=== PATIENT | female | born 1945 ===

== ENCOUNTER 2018-03-29 07:42 | Day surgery (SDC) | payer OTHER ==
[2018-03-26 20:46] VITALS: BMI 25.9
[2018-03-29] MEDS ORDERED: Iodixanol 320 MG/ML 100 ML BOTTLE IV ONE (11:52)
[2018-03-29] MEDS ORDERED: Midazolam 2 MG/2 ML VIAL ONE (11:52)
[2018-03-29] MEDS ORDERED: Iodixanol 320 MG/ML 200 ML BOTTLE IV ONE (11:52)
[2018-03-29] MEDS ORDERED: DiphenhydrAMINE 50 mg/ml Inj ONE (11:52)
--- NOTE | 2018-03-30 09:22 | CARDCATH ---
PROCEDURE DATE: 03/29/2018 INDICATIONS: The patient is a 72-year-old female who has history of hypertension and diabetes mellitus, presented to [facility] because of chest pain. [id number] myocardial infarction was ruled in. Cardiac catheterization was recommended. The procedure and its risks were fully explained to the patient who understood and agreed for the procedure. PROCEDURE: After local infiltration with 1% lidocaine, a 6-Lithuanian sheath was placed in the RFA. Left and right coronary angiography was performed with 6-Lithuanian JL4 and JR 3D diagnostic catheters. The patient tolerated the procedure well without any complications. ANGIOGRAPHIC FINDINGS: Selective injection of the left coronary artery revealed the left main to be a short normal vessel that immediately bifurcated into medium-sized LAD and medium-sized normal circumflex artery. The circumflex artery had 70% concentric stenosis in its mid segment. The rest of the left coronary artery circulation was angiographically unremarkable. Selective injection of the right coronary artery revealed a medium-sized dominant vessel that was angiographically unremarkable. CONCLUSION: 1. Insignificant ostial left main narrowing. 2. 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 RECOMMENDATIONS: PCI to mid circumflex artery will be discussed with the patient and the patient agrees. The patient will be transferred to [facility] for the procedure. Attila Boyd MD
== END 2018-03-29 17:00 | disposition short-term general hospital (02) ==
LOC: C.CATHLAB 07:42
PROVIDERS: ATTEND Specialist
DX: I25.10 Atherosclerotic heart disease of native coronary artery without angina pectoris (principal); I10 Essential (primary) hypertension; I21.9 Acute myocardial infarction, unspecified; E11.9 Type 2 diabetes mellitus without complications
CPT/HCPCS: 82948; 93452; C1769; C1887; C1893; J0360; J1644; J2250; Q9966; Q9967

== ENCOUNTER 2018-04-14 13:34 | Inpatient (IN) | payer MEDICARE, OTHER ==
[2018-04-14 13:39] VITALS: BMI 24.5
[2018-04-14 15:15] LABS: BASO % 0.9 % (0.0-2.0); EOS # 0.3 K/uL (0.0-0.7); EOS % 6.1 % (0.0-4.0); HEMOGLOBIN 9.6 g/dL (11.0-16.0); LYMPH # 1.2 K/uL (1.0-4.3); LYMPH % 26.4 % (20.0-40.0); MEAN CELL VOLUME 85.9 fL (81.0-99.0); MEAN CORPUSCULAR HEMOGLOBIN 28.3 pg (27.0-31.0); MEAN PLATELET VOLUME 7.4 fL (7.2-11.7); MONO # 0.4 K/uL (0.0-0.8); MONO % 7.8 % (0.0-10.0); NEUT # 2.8 K/uL (1.8-7.0); NEUT % 58.8 % (50.0-75.0); RBC 3.39 Mil/uL (3.80-5.20); RED CELL DISTRIBUTION WIDTH 14.6 % (11.5-14.5); WHITE BLOOD COUNT 4.7 K/uL (4.8-10.8)
[2018-04-14 15:23] LABS: PROTHROMBIN TIME 11.4 SECONDS (9.7-12.2)
[2018-04-14 15:32] LABS: ALB/GLOB RATIO 1.4 (1.0-2.1); ALBUMIN 4.4 g/dL (3.5-5.0); CALCIUM 9.9 mg/dl (8.6-10.4)
--- NOTE | 2018-04-14 16:32 | C.PDOC ---
History Of Present Illness 72 y/o female presents to ED s/p catheterization 2 weeks ago sent by Dr. Boyd for evaluation of pain and swelling to groin area. Patient had ultrasound today with Dr Mazariegos and was instructed to come to ED. Patient admits to occasional leg swelling and denies pain, fever, chills, discharge from area, leg numbness or any other complaints at this time. Time Seen by Provider: 04/14/18 14:30 Chief Complaint (Nursing): Lower Extremity Problem/Injury History Per: Patient History/Exam Limitations: no limitations Onset/Duration Of Symptoms: Days Current Symptoms Are (Timing): Still Present Past Medical History Reviewed: Historical Data, Nursing Documentation, Vital Signs Vital Signs: Last Vital Signs Temp 98.5 F 04/14/18 13:39 Pulse 69 04/14/18 13:39 Resp 16 04/14/18 13:39 BP 122/50 L 04/14/18 13:39 Pulse Ox 99 04/14/18 16:33 - Medical History PMH: Depression, Diabetes, Gastritis, HTN, Hypercholesterolemia, Hyperlipidemia Surgical History: No Surg Hx - [facility] Procedures APPLICATION OF SPLINT (06/12/13) MEASURE OF CARDIAC SAMPL & PRESSURE, L HEART, PERC APPROACH (03/28/18) PLAIN RADIOGRAPHY OF LEFT HEART USING OTHER CONTRAST (03/28/18) Family History: States: Diabetes, Hypertension - Social History Hx Alcohol Use: No Hx Substance Use: No Review Of Systems Constitutional: Negative for: Fever, Chills Cardiovascular: Negative for: Chest Pain Respiratory: Negative for: Shortness of Breath Gastrointestinal: Negative for: Nausea, Vomiting Genitourinary: Positive for: Other (groin pain and swelling) Musculoskeletal: Positive for: Leg Pain (swelling) Skin: Negative for: Rash Physical Exam - Physical Exam Appears: Non-toxic, No Acute Distress Skin: Warm, Dry, No Rash Head: Atraumatic, Normacephalic Eye(s): bilateral: Normal Inspection Oral Mucosa: Moist Neck: Supple Cardiovascular: Rhythm Regular Respiratory: Normal Breath Sounds, No Rales, No Rhonchi, No Wheezing Gastrointestinal/Abdominal: Soft, No Tenderness, No Guarding, No Rebound Extremity: Normal ROM, No Pedal Edema, Capillary Refill (<2 seconds) Neurological/Psych: Oriented x3, Normal Speech, Normal Cognition ED Course And Treatment - Laboratory Results Result Diagrams: 04/14/18 15:10 04/14/18 15:10 O2 Sat by Pulse Oximetry: 99 (RA) Pulse Ox Interpretation: Normal Disposition - Disposition Disposition: HOSPITALIZED Disposition Time: 17:08 Condition: FAIR Forms: [facility] (Mongolian) - POA Present On Arrival: None - Clinical Impression Clinical Impression: Pseudoaneurysm - PA / SHOE PLANNER / Resident Statement MD/DO has reviewed & agrees with the documentation as recorded. - Scribe Statement The provider has reviewed the documentation as recorded by the Scribpebbles Russell All medical record entries made by the Ranjan were at my direction and personally dictated by me. I have reviewed the chart and agree that the record accurately reflects my personal performance of the history, physical exam, medical decision making, and the department course for this patient. I have also personally directed, reviewed, and agree with the discharge instructions and disposition.
[2018-04-14] MEDS ORDERED: Dextrose 50% SYRINGE Inj (50 ml) IV PRN (17:36)
[2018-04-14] MEDS ORDERED: Pantoprazole 40 mg EC Tab PO ONE (18:01)
[2018-04-14] MEDS: Pantoprazole 40 mg EC Tab PO SCH (18:04)
[2018-04-14] MEDS: (Novolin R) Insulin Human Regular 100 units/ml vial SC SCH (21:42)
--- NOTE | 2018-04-14 22:36 | CP.PCM.HP ---
<Rahul Young P - Last Filed: 04/15/18 06:49> Meds Allergies/Adverse Reactions: Allergies Allergy/AdvReac Type Severity Reaction Status Date / Time No Known Allergies Allergy Verified 04/14/18 13:38 Results - Vital Signs Recent Vital Signs: Last Vital Signs Temp 97.7 F 04/15/18 00:00 Pulse 60 04/15/18 00:00 Resp 20 04/15/18 00:00 BP 154/67 H 04/15/18 00:00 Pulse Ox 98 04/15/18 00:30 - Labs Result Diagrams: 04/14/18 15:10 04/14/18 15:10 Labs: Laboratory Results - last 24 hr 04/14/18 04/14/18 04/14/18 13:44 15:10 15:10 WBC 4.7 L RBC 3.39 L Hgb 9.6 L Hct 29.1 L MCV 85.9 MCH 28.3 MCHC 33.0 RDW 14.6 H Plt Count 291 MPV 7.4 Neut % (Auto) 58.8 Lymph % (Auto) 26.4 Craig % (Auto) 7.8 Eos % (Auto) 6.1 H Baso % (Auto) 0.9 Neut # (Auto) 2.8 Lymph # (Auto) 1.2 Craig # (Auto) 0.4 Eos # (Auto) 0.3 Baso # (Auto) 0.0 PT 11.4 INR 1.0 APTT 38 H Sodium Potassium Chloride Carbon Dioxide Anion Gap BUN Creatinine Est GFR ( Amer) Est GFR (Non-Af Amer) POC Glucose (mg/dL) 224 H Random Glucose Calcium Total Bilirubin AST ALT Alkaline Phosphatase Total Protein Albumin Globulin Albumin/Globulin Ratio Blood Type Antibody Screen 04/14/18 04/14/18 04/14/18 15:10 15:10 16:50 WBC RBC Hgb Hct MCV MCH MCHC RDW Plt Count MPV Neut % (Auto) Lymph % (Auto) [place] % (Auto) Eos % (Auto) Baso % (Auto) Neut # (Auto) Lymph # (Auto) [place] # (Auto) Eos # (Auto) Baso # (Auto) PT INR APTT Sodium 143 Potassium 4.7 Chloride 105 Carbon Dioxide 25 Anion Gap 17 BUN 33 H Creatinine 1.2 Est GFR ( Amer) 53 Est GFR (Non-Af Amer) 44 POC Glucose (mg/dL) 112 H Random Glucose 152 H Calcium 9.9 Total Bilirubin 0.4 AST 17 ALT 29 Alkaline Phosphatase 70 Total Protein 7.5 Albumin 4.4 Globulin 3.1 Albumin/Globulin Ratio 1.4 Blood Type O NEGATIVE Antibody Screen Negative 04/14/18 21:20 WBC RBC Hgb Hct MCV MCH MCHC RDW Plt Count MPV Neut % (Auto) Lymph % (Auto) [place] % (Auto) Eos % (Auto) Baso % (Auto) Neut # (Auto) Lymph # (Auto) [place] # (Auto) Eos # (Auto) Baso # (Auto) PT INR APTT Sodium Potassium Chloride Carbon Dioxide Anion Gap BUN Creatinine Est GFR ( Amer) Est GFR (Non-Af Amer) POC Glucose (mg/dL) 147 H Random Glucose Calcium Total Bilirubin AST ALT Alkaline Phosphatase Total Protein Albumin Globulin Albumin/Globulin Ratio Blood Type Antibody Screen Attending/Attestation - Attestation I have personally seen and examined this patient.: Yes I have fully participated in the care of the patient.: Yes I have reviewed all pertinent clinical information: Yes Notes (Text): Assessment * Right groin pseudoaneurysm post cath since 04/02, done at [facility], + pulsation, not painful. * H/o DM, htn Plan * IR to probably intervene with local thrombin/stent or coiling. * NPO post midnight * Hold OHA * See orders for detail <Noreen Melo - Last Filed: 04/15/18 07:37> History of Present Illness - History of Present Illness History of Present Illness: HPI: Patient is a 72 year old female with a past medical history of DM, HTN, HLD , who presents to the ED with complaints of a swollen right groin s/p cardiac cath. The patient had a cardiac cath on 03/29 and since then had mild swelling in the right groin. She follow up with Dr. Johnson who ordered an Ultrasound of the groin. The ultrasound showed a pseudoaneurysm. The patient currently has no complaints, denies pain in the right groin, and says its mildly swollen. Patient denies chest pain, palpitations, dyspnea, abdominal pain, nausea, vomiting, fevers, headaches, dizziness, dysuria, constipation, and diarrhea. PMHx: HTN, DM, HLD SurgHx: tubal ligation FamHx: +Heart disease, DM, and HTN SocHx: denies tobacco and drug use; socially drinks alcohol. Allergies: NKDA Medication: asa 81mg po daily, lipitor 40mg po daily, vitamin B12 daily, glipizide 5mg po daily, losartan 100mg po daily, protonix 40mg po daily, trazadone 50mg po HS, Ambien 10mg PO HS. Present on Admission - Present on Admission Any Indicators Present on Admission: No Review of Systems - Constitutional Constitutional: absent: Chills, Fever, Headache - EENT Ears: absent: Dizziness - Cardiovascular Cardiovascular: absent: Chest Pain, Chest Pain at Rest, Irregular Heart Rhythm, Leg Edema, Palpitations - Respiratory Respiratory: absent: Cough, Dyspnea - Gastrointestinal Gastrointestinal: absent: Abdominal Pain, Constipation, Diarrhea, Nausea, Vomiting - Genitourinary Genitourinary: absent: Dysuria, Hematuria - Integumentary Integumentary: Erythema (right groin), Swelling (right groin) - Neurological Neurological: absent: Dizziness, Headaches - Endocrine Endocrine: absent: Fatigue, Palpitations Past Patient History - Past Medical History & Family History Past Medical History?: Yes - Past Social History Smoking Status: Never Smoked - CARDIAC Hx Hypercholesterolemia: Yes Hx Hypertension: Yes - PULMONARY Hx Respiratory Disorders: No - NEUROLOGICAL Hx Neurological Disorder: No - HEENT Hx HEENT Problems: Yes Hx Cataracts: Yes - RENAL Hx Chronic Kidney Disease: No - ENDOCRINE/METABOLIC Hx Endocrine Disorders: Yes Hx Diabetes Mellitus Type 2: Yes - HEMATOLOGICAL/ONCOLOGICAL Hx Blood Disorders: No - INTEGUMENTARY Hx Dermatological Problems: No - MUSCULOSKELETAL/RHEUMATOLOGICAL Hx Musculoskeletal Disorders: Yes Hx Falls: Yes - GASTROINTESTINAL Hx Gastritis: Yes - GENITOURINARY/GYNECOLOGICAL Hx Genitourinary Disorders: No - PSYCHIATRIC Hx Depression: Yes Hx Substance Use: No - SURGICAL HISTORY Hx Surgeries: Yes Hx Cataract Extraction: Yes (BILATERAL) Hx Tubal Ligation: Yes Other/Comment: Left ear surgery. Bilateral breast cyst removal - ANESTHESIA Hx Anesthesia: Yes Hx Anesthesia Reactions: No Hx Malignant Hyperthermia: No Physical Exam - Constitutional Appears: No Acute Distress - Head Exam Head Exam: ATRAUMATIC, NORMAL INSPECTION - Eye Exam Eye Exam: EOMI, Normal appearance, PERRL - ENT Exam ENT Exam: Mucous Membranes Moist - Respiratory Exam Respiratory Exam: Clear to Auscultation Bilateral, NORMAL BREATHING PATTERN. absent: Rales, Rhonchi, Wheezes, Respiratory Distress - Cardiovascular Exam Cardiovascular Exam: REGULAR RHYTHM, +S1, +S2 - GI/Abdominal Exam GI & Abdominal Exam: Normal Bowel Sounds, Soft. absent: Distended, Firm, Mass, Tenderness - Exam Additional comments: Right groin s/p cath: erythematous, inflammed; +pulse; nontender to palpation - Extremities Exam Extremities exam: Positive for: normal inspection. Negative for: pedal edema, tenderness, pedal pulses present - Neurological Exam Neurological exam: Alert, Oriented x3 - Psychiatric Exam Psychiatric exam: Normal Affect, Normal Mood - Skin Skin Exam: Dry, Intact, Normal Color, Warm Results - Vital Signs Recent Vital Signs: Last Vital Signs Temp 99 F 04/14/18 20:23 Pulse 62 04/14/18 20:23 Resp 20 04/14/18 20:23 BP 147/62 04/14/18 20:23 Pulse Ox 99 04/14/18 20:23 - Labs Result Diagrams: 04/15/18 06:36 04/15/18 06:36 Labs: Laboratory Results - last 24 hr 04/14/18 04/14/18 04/14/18 13:44 15:10 15:10 WBC 4.7 L RBC 3.39 L Hgb 9.6 L Hct 29.1 L MCV 85.9 MCH 28.3 MCHC 33.0 RDW 14.6 H Plt Count 291 MPV 7.4 Neut % (Auto) 58.8 Lymph % (Auto) 26.4 Craig % (Auto) 7.8 Eos % (Auto) 6.1 H Baso % (Auto) 0.9 Neut # (Auto) 2.8 Lymph # (Auto) 1.2 Craig # (Auto) 0.4 Eos # (Auto) 0.3 Baso # (Auto) 0.0 PT 11.4 INR 1.0 APTT 38 H Sodium Potassium Chloride Carbon Dioxide Anion Gap BUN Creatinine Est GFR ( Amer) Est GFR (Non-Af Amer) POC Glucose (mg/dL) 224 H Random Glucose Calcium Total Bilirubin AST ALT Alkaline Phosphatase Total Protein Albumin Globulin Albumin/Globulin Ratio Blood Type Antibody Screen 04/14/18 04/14/18 04/14/18 15:10 15:10 16:50 WBC RBC Hgb Hct MCV MCH MCHC RDW Plt Count MPV Neut % (Auto) Lymph % (Auto) [place] % (Auto) Eos % (Auto) Baso % (Auto) Neut # (Auto) Lymph # (Auto) [place] # (Auto) Eos # (Auto) Baso # (Auto) PT INR APTT Sodium 143 Potassium 4.7 Chloride 105 Carbon Dioxide 25 Anion Gap 17 BUN 33 H Creatinine 1.2 Est GFR ( Amer) 53 Est GFR (Non-Af Amer) 44 POC Glucose (mg/dL) 112 H Random Glucose 152 H Calcium 9.9 Total Bilirubin 0.4 AST 17 ALT 29 Alkaline Phosphatase 70 Total Protein 7.5 Albumin 4.4 Globulin 3.1 Albumin/Globulin Ratio 1.4 Blood Type O NEGATIVE Antibody Screen Negative 04/14/18 21:20 WBC RBC Hgb Hct MCV MCH MCHC RDW Plt Count MPV Neut % (Auto) Lymph % (Auto) [place] % (Auto) Eos % (Auto) Baso % (Auto) Neut # (Auto) Lymph # (Auto) [place] # (Auto) Eos # (Auto) Baso # (Auto) PT INR APTT Sodium Potassium Chloride Carbon Dioxide Anion Gap BUN Creatinine Est GFR ( Amer) Est GFR (Non-Af Amer) POC Glucose (mg/dL) 147 H Random Glucose Calcium Total Bilirubin AST ALT Alkaline Phosphatase Total Protein Albumin Globulin Albumin/Globulin Ratio Blood Type Antibody Screen Assessment & Plan - Assessment and Plan (Free Text) Plan: Right groin Pseudoaneurysm - s/p cardiac cath (03/29/18) - US: largely thrombosed moderate sized pseudoaneurysm 2.7x1/6x5.4cm with limited residual flow appreciated related to the right common femoral artery - Cardiology consulted, Dr. Mazariegos; help appreciated - IR consulted, Dr. Bynum; help appreciated - NPO past midnight DM - Accuchecks - Hypoglycemic protocol - ISS - Continue to monitor HTN - Continue home medication: Losartan 100mg PO daily Prophylaxis - GI: Protonix 40mg po (home medication) - DVT: hold chemical anticoagulation - Continued home medication: Cretor 20mg PO HS, Vitamin B12, Ambien 5mg PO HS prn, Trazadone 50mg PO HS
[2018-04-15 06:47] LABS: BASO % 0.8 % (0.0-2.0); EOS # 0.3 K/uL (0.0-0.7); EOS % 7.5 % (0.0-4.0); LYMPH # 1.3 K/uL (1.0-4.3); MEAN CELL VOLUME 84.7 fL (81.0-99.0); MEAN CORPUSCULAR HEMOGLOBIN 28.5 pg (27.0-31.0); MEAN CORPUSCULAR HGB CONC 33.7 g/dL (33.0-37.0); MEAN PLATELET VOLUME 7.3 fL (7.2-11.7); MONO # 0.4 K/uL (0.0-0.8); MONO % 9.8 % (0.0-10.0); NEUT # 2.1 K/uL (1.8-7.0); NEUT % 50.9 % (50.0-75.0); RBC 3.15 Mil/uL (3.80-5.20); RED CELL DISTRIBUTION WIDTH 14.7 % (11.5-14.5); WHITE BLOOD COUNT 4.1 K/uL (4.8-10.8)
[2018-04-15 07:04] LABS: ALB/GLOB RATIO 1.5 (1.0-2.1); ALBUMIN 3.8 g/dL (3.5-5.0); CALCIUM 9.4 mg/dl (8.6-10.4)
[2018-04-15] MEDS: (Novolin R) Insulin Human Regular 100 units/ml vial SC SCH ×3 (07:58→16:30)
[2018-04-15] MEDS: Pantoprazole 40 mg EC Tab PO SCH (09:40)
--- NOTE | 2018-04-15 09:50 | CP.PCM.PN ---
<Beena Rincon - Last Filed: 04/15/18 16:31> Subjective - Date & Time of Evaluation Date of Evaluation: 04/15/18 Time of Evaluation: 09:50 - Subjective Subjective: Cardiology Progress Note - Dr Mazariegos Patient seen and examined at bedside. Per nursing no acute events overnight. Patient complaining of mild pain at the right groin. Also complaining of pain behind her right knee that has been present since cardiac cath. She denies any chest pain or dyspnea. Objective - Vital Signs/Intake and Output Vital Signs (last 24 hours): Temp Pulse Resp BP Pulse Ox 98.2 F 60 20 118/48 L 98 04/15/18 08:00 04/15/18 08:00 04/15/18 08:00 04/15/18 08:00 04/15/18 08:40 Intake and Output: 04/15/18 04/15/18 06:59 18:59 Intake Total 0 50 Balance 0 50 - Medications Medications: Current Medications Cyanocobalamin (Vitamin B12 1000 Mcg Tab) 1,000 mcg PO DAILY [facility] Last Admin: 04/15/18 09:40 Dose: 1,000 mcg Dextrose (Dextrose 50% Inj) 0 ml IV STAT PRN; Protocol PRN Reason: Hypoglycemia Protocol Dextrose (Glutose 15) 0 gm PO ONCE PRN; Protocol PRN Reason: Hypoglycemia Protocol Dextrose (Dextrose 5% In Water 1000 Ml) 1,000 mls @ 0 mls/hr IV .Q0M PRN; Protocol; Per Protocol PRN Reason: Hypoglycemia Protocol Insulin Human Regular (Novolin R) 0 unit SC ACHS [facility] PRN Reason: Protocol Last Admin: 04/15/18 07:58 Dose: Not Given Losartan Potassium (Cozaar) 100 mg PO DAILY [facility] Last Admin: 04/15/18 09:40 Dose: 100 mg Pantoprazole Sodium (Protonix Ec Tab) 40 mg PO DAILY [facility] Last Admin: 04/15/18 09:40 Dose: 40 mg Rosuvastatin Calcium (Crestor) 20 mg PO HS [place] Trazodone HCl (Desyrel) 50 mg PO HS [facility] Last Admin: 04/14/18 22:48 Dose: 50 mg Zolpidem Tartrate (Ambien) 5 mg PO HS PRN PRN Reason: Insomnia Last Admin: 04/14/18 22:48 Dose: 5 mg - Labs Labs: 04/15/18 06:36 08/10/18 06:36 PT 11.4 SECONDS (9.7-12.2) 04/14/18 15:10 INR 1.0 04/14/18 15:10 APTT 38 SECONDS (21-34) H 04/14/18 15:10 - Constitutional Appears: Well, No Acute Distress - Head Exam Head Exam: ATRAUMATIC, NORMAL INSPECTION, NORMOCEPHALIC - Eye Exam Eye Exam: EOMI, Normal appearance - ENT Exam ENT Exam: Mucous Membranes Moist - Respiratory Exam Respiratory Exam: Clear to Ausculation Bilateral, NORMAL BREATHING PATTERN - Cardiovascular Exam Cardiovascular Exam: REGULAR RHYTHM, +S1, +S2 - GI/Abdominal Exam GI & Abdominal Exam: Soft. absent: Guarding, Rigid, Tenderness - Extremities Exam Extremities Exam: Full ROM Additional comments: Right groin: mild tenderness - Neurological Exam Neurological Exam: Alert, Awake, Oriented x3 - Psychiatric Exam Psychiatric exam: Normal Affect, Normal Mood - Skin Skin Exam: Dry, Normal Color, Warm Assessment and Plan - Assessment and Plan (Free Text) Assessment: 72 year old female with right groin pseudoaneurysm s/p cardiac cath 03/29/18 -Stable, afebrile -F/U repeat venous duplex -Heparin 5000 units Q12H to start tomorrow -IR on consult, f/u recommendations -Plan discussed with Dr Yair Rincon DO PGY-2 <Trever Mazariegos - Last Filed: 04/16/18 06:20> Objective - Vital Signs/Intake and Output Vital Signs (last 24 hours): Temp Pulse Resp BP Pulse Ox 97.6 F 65 20 159/64 H 100 04/16/18 00:00 04/16/18 00:00 04/16/18 00:00 04/16/18 00:00 04/16/18 04:33 Intake and Output: 04/15/18 04/16/18 18:59 06:59 Intake Total 350 250 Balance 350 250 - Medications Medications: Current Medications Cyanocobalamin (Vitamin B12 1000 Mcg Tab) 1,000 mcg PO DAILY [place] Last Admin: 04/15/18 09:40 Dose: 1,000 mcg Dextrose (Dextrose 50% Inj) 0 ml IV STAT PRN; Protocol PRN Reason: Hypoglycemia Protocol Dextrose (Glutose 15) 0 gm PO ONCE PRN; Protocol PRN Reason: Hypoglycemia Protocol Heparin Sodium (Porcine) (Heparin) 5,000 units SC Q12H [facility] Last Admin: 04/16/18 05:30 Dose: 5,000 units Dextrose (Dextrose 5% In Water 1000 Ml) 1,000 mls @ 0 mls/hr IV .Q0M PRN; Protocol; Per Protocol PRN Reason: Hypoglycemia Protocol Insulin Human Regular (Novolin R) 0 unit SC ACHS [place] PRN Reason: Protocol Last Admin: 04/15/18 16:30 Dose: Not Given Losartan Potassium (Cozaar) 100 mg PO DAILY [place] Last Admin: 04/15/18 09:40 Dose: 100 mg Pantoprazole Sodium (Protonix Ec Tab) 40 mg PO DAILY [place] Last Admin: 04/15/18 09:40 Dose: 40 mg Rosuvastatin Calcium (Crestor) 20 mg PO HS [place] Last Admin: 04/15/18 21:34 Dose: 20 mg Trazodone HCl (Desyrel) 50 mg PO HS [place] Last Admin: 04/15/18 21:34 Dose: 50 mg Zolpidem Tartrate (Ambien) 5 mg PO HS PRN PRN Reason: Insomnia Last Admin: 04/15/18 23:23 Dose: 5 mg - Labs Labs: 04/15/18 06:36 04/15/18 06:36 PT 11.4 SECONDS (9.7-12.2) 04/14/18 15:10 INR 1.0 04/14/18 15:10 APTT 38 SECONDS (21-34) H 04/14/18 15:10 Assessment and Plan - Assessment and Plan (Free Text) Assessment: Patient seen and evaluated personally by me. Plan of care d/w the medical reimbursement manager and as documented D/W IR. Repeat groin Ultrasound study on Wednesday for further decision if thrombin injection needed. Bed rest with DVT prophylaxis
--- NOTE | 2018-04-15 10:07 | PCM.IRP ---
History of Present Illness - History of Present Illness History of Present Illness: IR consulted for thrombin injection right femoral pseudoaneurysm. There is a 5.4 x 1.8 cm right femoral pseudoaneurysm. The pseudoaneurysm is partially thrombosed. There is a persistent patent lumen of 1.8 cm x 1.2 cm near the neck. Recommend continued surveillance and follow up duplex. Will plan on thrombin injection if the pseudoanueryms increases in size. Objective - Vital Signs/Intake and Output Vital Signs (last 24 hours): Vital Signs - 24 hr 04/14/18 04/14/18 04/14/18 13:39 17:09 17:35 Temperature 98.5 F 98.6 F Pulse Rate 69 55 L Respiratory 16 18 Rate Blood Pressure 122/50 L 166/66 H O2 Sat by Pulse 99 99 100 Oximetry 04/14/18 04/15/18 04/15/18 20:23 00:00 00:30 Temperature 99 F 97.7 F Pulse Rate 62 60 Respiratory 20 20 Rate Blood Pressure 147/62 154/67 H O2 Sat by Pulse 99 98 98 Oximetry 04/15/18 04/15/18 04/15/18 04:30 08:00 08:40 Temperature 98.2 F Pulse Rate 60 Respiratory 20 Rate Blood Pressure 118/48 L O2 Sat by Pulse 98 98 98 Oximetry Intake and Output (last 12 hours): Intake & Output 04/14/18 04/15/18 04/15/18 18:59 06:59 18:59 Intake Total 0 50 Balance 0 50 Weight 134 lb Intake: Oral 0 50 Other: # Voids Urine, Voided 0 1 # Bowel Movements 0 - Medications Medications: Current Medications Cyanocobalamin (Vitamin B12 1000 Mcg Tab) 1,000 mcg PO DAILY [facility] Last Admin: 04/15/18 09:40 Dose: 1,000 mcg Dextrose (Dextrose 50% Inj) 0 ml IV STAT PRN; Protocol PRN Reason: Hypoglycemia Protocol Dextrose (Glutose 15) 0 gm PO ONCE PRN; Protocol PRN Reason: Hypoglycemia Protocol Dextrose (Dextrose 5% In Water 1000 Ml) 1,000 mls @ 0 mls/hr IV .Q0M PRN; Protocol; Per Protocol PRN Reason: Hypoglycemia Protocol Insulin Human Regular (Novolin R) 0 unit SC ACHS [facility] PRN Reason: Protocol Last Admin: 04/15/18 07:58 Dose: Not Given Losartan Potassium (Cozaar) 100 mg PO DAILY [place] Last Admin: 04/15/18 09:40 Dose: 100 mg Pantoprazole Sodium (Protonix Ec Tab) 40 mg PO DAILY [place] Last Admin: 04/15/18 09:40 Dose: 40 mg Rosuvastatin Calcium (Crestor) 20 mg PO HS [place] Trazodone HCl (Desyrel) 50 mg PO HS [place] Last Admin: 04/14/18 22:48 Dose: 50 mg Zolpidem Tartrate (Ambien) 5 mg PO HS PRN PRN Reason: Insomnia Last Admin: 04/14/18 22:48 Dose: 5 mg - Labs Labs (last 24 hours): Laboratory Results - last 24 hr 04/14/18 04/14/18 04/14/18 13:44 15:10 15:10 WBC 4.7 L RBC 3.39 L Hgb 9.6 L Hct 29.1 L MCV 85.9 MCH 28.3 MCHC 33.0 RDW 14.6 H Plt Count 291 MPV 7.4 Neut % (Auto) 58.8 Lymph % (Auto) 26.4 [place] % (Auto) 7.8 Eos % (Auto) 6.1 H Baso % (Auto) 0.9 Neut # (Auto) 2.8 Lymph # (Auto) 1.2 [place] # (Auto) 0.4 Eos # (Auto) 0.3 Baso # (Auto) 0.0 PT 11.4 INR 1.0 APTT 38 H Sodium Potassium Chloride Carbon Dioxide Anion Gap BUN Creatinine Est GFR ( Amer) Est GFR (Non-Af Amer) POC Glucose (mg/dL) 224 H Random Glucose Calcium Phosphorus Magnesium Total Bilirubin AST ALT Alkaline Phosphatase Total Protein Albumin Globulin Albumin/Globulin Ratio Blood Type Antibody Screen 04/14/18 04/14/18 04/14/18 15:10 15:10 16:50 WBC RBC Hgb Hct MCV MCH MCHC RDW Plt Count MPV Neut % (Auto) Lymph % (Auto) [place] % (Auto) Eos % (Auto) Baso % (Auto) Neut # (Auto) Lymph # (Auto) [place] # (Auto) Eos # (Auto) Baso # (Auto) PT INR APTT Sodium 143 Potassium 4.7 Chloride 105 Carbon Dioxide 25 Anion Gap 17 BUN 33 H Creatinine 1.2 Est GFR ( Amer) 53 Est GFR (Non-Af Amer) 44 POC Glucose (mg/dL) 112 H Random Glucose 152 H Calcium 9.9 Phosphorus Magnesium Total Bilirubin 0.4 AST 17 ALT 29 Alkaline Phosphatase 70 Total Protein 7.5 Albumin 4.4 Globulin 3.1 Albumin/Globulin Ratio 1.4 Blood Type O NEGATIVE Antibody Screen Negative 04/14/18 04/15/18 04/15/18 21:20 06:36 06:36 WBC 4.1 L RBC 3.15 L Hgb 9.0 L Hct 26.7 L MCV 84.7 MCH 28.5 MCHC 33.7 RDW 14.7 H Plt Count 263 MPV 7.3 Neut % (Auto) 50.9 Lymph % (Auto) 31.0 [place] % (Auto) 9.8 Eos % (Auto) 7.5 H Baso % (Auto) 0.8 Neut # (Auto) 2.1 Lymph # (Auto) 1.3 [place] # (Auto) 0.4 Eos # (Auto) 0.3 Baso # (Auto) 0.0 PT INR APTT Sodium 142 Potassium 4.6 Chloride 108 H Carbon Dioxide 25 Anion Gap 14 BUN 31 H Creatinine 1.1 Est GFR ( Amer) 59 Est GFR (Non-Af Amer) 49 POC Glucose (mg/dL) 147 H Random Glucose 82 Calcium 9.4 Phosphorus 4.1 Magnesium 2.0 Total Bilirubin 0.3 AST 14 ALT 20 Alkaline Phosphatase 52 Total Protein 6.2 L Albumin 3.8 Globulin 2.4 Albumin/Globulin Ratio 1.5 Blood Type Antibody Screen
--- NOTE | 2018-04-15 12:36 | CP.PCM.PN ---
Subjective - Date & Time of Evaluation Date of Evaluation: 04/15/18 Time of Evaluation: 10:00 - Subjective Subjective: PGY-1 Maylin Elizondo D.O. Medicine progress not for Dr. Chris Moore's service : Patient was seen an examined this morning. She is concerned that she is NPO and no one has told her about a surgery. It was explained to the patient that we are awaiting evaluation by IR to determine whether or not there will be an intervention. Patient states that her R groin has some mild pain, especially with palpation, but she denies needing any medication for the pain. She denies numbness, tingling, or coolness of her RLE. Objective - Vital Signs/Intake and Output Vital Signs (last 24 hours): Temp Pulse Resp BP Pulse Ox 98.2 F 60 20 118/48 L 98 04/15/18 08:00 04/15/18 08:00 04/15/18 08:00 04/15/18 08:00 04/15/18 08:40 Intake and Output: 04/15/18 04/15/18 06:59 18:59 Intake Total 0 50 Balance 0 50 - Medications Medications: Current Medications Cyanocobalamin (Vitamin B12 1000 Mcg Tab) 1,000 mcg PO DAILY [facility] Last Admin: 04/15/18 09:40 Dose: 1,000 mcg Dextrose (Dextrose 50% Inj) 0 ml IV STAT PRN; Protocol PRN Reason: Hypoglycemia Protocol Dextrose (Glutose 15) 0 gm PO ONCE PRN; Protocol PRN Reason: Hypoglycemia Protocol Dextrose (Dextrose 5% In Water 1000 Ml) 1,000 mls @ 0 mls/hr IV .Q0M PRN; Protocol; Per Protocol PRN Reason: Hypoglycemia Protocol Insulin Human Regular (Novolin R) 0 unit SC [facility] PRN Reason: Protocol Last Admin: 04/15/18 11:31 Dose: Not Given Losartan Potassium (Cozaar) 100 mg PO DAILY [facility] Last Admin: 04/15/18 09:40 Dose: 100 mg Pantoprazole Sodium (Protonix Ec Tab) 40 mg PO DAILY [facility] Last Admin: 04/15/18 09:40 Dose: 40 mg Rosuvastatin Calcium (Crestor) 20 mg PO HS [facility] Trazodone HCl (Desyrel) 50 mg PO HS [facility] Last Admin: 04/14/18 22:48 Dose: 50 mg Zolpidem Tartrate (Ambien) 5 mg PO HS PRN PRN Reason: Insomnia Last Admin: 04/14/18 22:48 Dose: 5 mg - Labs Labs: 04/15/18 06:36 04/15/18 06:36 PT 11.4 SECONDS (9.7-12.2) 04/14/18 15:10 INR 1.0 04/14/18 15:10 APTT 38 SECONDS (21-34) H 04/14/18 15:10 - Constitutional Appears: Well, No Acute Distress - Head Exam Head Exam: ATRAUMATIC, NORMAL INSPECTION, NORMOCEPHALIC - Eye Exam Eye Exam: EOMI, Normal appearance - ENT Exam ENT Exam: Mucous Membranes Moist, Normal Exam - Neck Exam Neck Exam: Normal Inspection - Respiratory Exam Respiratory Exam: Clear to Ausculation Bilateral, NORMAL BREATHING PATTERN - Cardiovascular Exam Cardiovascular Exam: REGULAR RHYTHM, +S1, +S2 - GI/Abdominal Exam GI & Abdominal Exam: Soft, Normal Bowel Sounds. absent: Tenderness - Rectal Exam Rectal Exam: Deferred - Extremities Exam Extremities Exam: Normal Capillary Refill, Normal Inspection, Tenderness. absent: Calf Tenderness, Joint Swelling, Pedal Edema Additional comments: R groin s/p cath- approximately 5 cm raised area, erythematous, tender to palpation RLE is warm to touch, pulses are felt, no loss of sensation - Back Exam Back Exam: NORMAL INSPECTION - Neurological Exam Neurological Exam: Alert, Awake, CN II-XII Intact, Oriented x3 - Psychiatric Exam Psychiatric exam: Normal Affect, Normal Mood - Skin Skin Exam: Dry, Intact, Normal Color, Warm Assessment and Plan - Assessment and Plan (Free Text) Assessment: Patient is 72 yo female who presents s/p cardiac cath via R femoral artery on 03/29. She has a pseudoaneurysm with partial thrombosis in the R groin. Plan: Right groin Pseudoaneurysm- s/p cardiac cath (03/29/18) - Outpatient u/s: largely thrombosed moderate sized pseudoaneurysm 2.7x1/ 6x5.4cm with limited residual flow appreciated related to the right common femoral artery - Cardiology consulted (Dr. Mazariegos) - IR consulted (Dr. Bynum)- no intervention at this time, f/u repeat u/s to determine size and patency - F/u RLE u/s T2DM - Accuchecks - Hypoglycemic protocol - ISS- regular HTN - Continue home Losartan 100mg PO daily HLD - Continued home Crestor 20mg PO QHS Insomnia - Trazadone 50mg PO QHS - Ambien 5mg PO HS prn Vitamin B12 deficiency - Continue home vitamin B12 IVF: not indicated GI ppx: Protonix 40mg PO daily (home medication) DVT ppx: heparin 5000u SC q12hrs start tomorrow as per cardio Diet: heart healthy (low carb) Code status: full code
[2018-04-16 06:48] LABS: BASO % 0.8 % (0.0-2.0); EOS # 0.2 K/uL (0.0-0.7); EOS % 5.9 % (0.0-4.0); HEMOGLOBIN 9.7 g/dL (11.0-16.0); LYMPH # 1.1 K/uL (1.0-4.3); LYMPH % 27.5 % (20.0-40.0); MEAN CORPUSCULAR HEMOGLOBIN 28.4 pg (27.0-31.0); MEAN CORPUSCULAR HGB CONC 33.4 g/dL (33.0-37.0); MEAN PLATELET VOLUME 7.5 fL (7.2-11.7); MONO # 0.4 K/uL (0.0-0.8); MONO % 9.6 % (0.0-10.0); NEUT # 2.3 K/uL (1.8-7.0); NEUT % 56.2 % (50.0-75.0); NRBC % 0.2 % (0.0-2.0); RBC 3.41 Mil/uL (3.80-5.20); RED CELL DISTRIBUTION WIDTH 14.7 % (11.5-14.5); WHITE BLOOD COUNT 4.2 K/uL (4.8-10.8)
[2018-04-16 07:05] LABS: ALB/GLOB RATIO 1.6 (1.0-2.1); CALCIUM 9.2 mg/dl (8.6-10.4)
[2018-04-16] MEDS: (Novolin R) Insulin Human Regular 100 units/ml vial SC SCH ×4 (08:38→17:55)
--- NOTE | 2018-04-16 08:39 | CP.PCM.PN ---
Subjective - Date & Time of Evaluation Date of Evaluation: 04/16/18 Time of Evaluation: 08:38 - Subjective Subjective: Pt seen and examined at bedside. Pt laying comfortably in bed. Pt reports a normal bowel movent yesterday. Pt denies chest pain, SOB, cough, radiating poain , n/v, f/c Objective - Vital Signs/Intake and Output Vital Signs (last 24 hours): Temp Pulse Resp BP Pulse Ox 98.5 F 59 L 20 145/69 97 04/16/18 08:16 04/16/18 08:16 04/16/18 08:16 04/16/18 08:16 04/16/18 08:16 Intake and Output: 04/16/18 04/16/18 06:59 18:59 Intake Total 250 Balance 250 - Medications Medications: Current Medications Cyanocobalamin (Vitamin B12 1000 Mcg Tab) 1,000 mcg PO DAILY [facility] Last Admin: 04/15/18 09:40 Dose: 1,000 mcg Dextrose (Dextrose 50% Inj) 0 ml IV STAT PRN; Protocol PRN Reason: Hypoglycemia Protocol Dextrose (Glutose 15) 0 gm PO ONCE PRN; Protocol PRN Reason: Hypoglycemia Protocol Heparin Sodium (Porcine) (Heparin) 5,000 units SC Q12H [facility] Last Admin: 04/16/18 05:30 Dose: 5,000 units Dextrose (Dextrose 5% In Water 1000 Ml) 1,000 mls @ 0 mls/hr IV .Q0M PRN; Protocol; Per Protocol PRN Reason: Hypoglycemia Protocol Insulin Human Regular (Novolin R) 0 unit SC [facility] [place] PRN Reason: Protocol Last Admin: 04/15/18 16:30 Dose: Not Given Losartan Potassium (Cozaar) 100 mg PO DAILY [facility] Last Admin: 04/15/18 09:40 Dose: 100 mg Pantoprazole Sodium (Protonix Ec Tab) 40 mg PO DAILY [facility] Last Admin: 04/15/18 09:40 Dose: 40 mg Rosuvastatin Calcium (Crestor) 20 mg PO HS [place] Last Admin: 04/15/18 21:34 Dose: 20 mg Trazodone HCl (Desyrel) 50 mg PO HS [facility] Last Admin: 04/15/18 21:34 Dose: 50 mg Zolpidem Tartrate (Ambien) 5 mg PO HS PRN PRN Reason: Insomnia Last Admin: 04/15/18 23:23 Dose: 5 mg - Labs Labs: 04/16/18 06:32 04/16/18 06:32 PT 11.4 SECONDS (9.7-12.2) 04/14/18 15:10 INR 1.0 04/14/18 15:10 APTT 38 SECONDS (21-34) H 04/14/18 15:10 Assessment and Plan - Assessment and Plan (Free Text) Assessment: - Constitutional Appears: Well, No Acute Distress - Head Exam Head Exam: ATRAUMATIC, NORMAL INSPECTION, NORMOCEPHALIC - Eye Exam Eye Exam: EOMI, Normal appearance - ENT Exam ENT Exam: Mucous Membranes Moist, Normal Exam - Neck Exam Neck Exam: Normal Inspection - Respiratory Exam Respiratory Exam: Clear to Ausculation Bilateral, NORMAL BREATHING PATTERN - Cardiovascular Exam Cardiovascular Exam: REGULAR RHYTHM, +S1, +S2 - GI/Abdominal Exam GI & Abdominal Exam: Soft, Normal Bowel Sounds. absent: Tenderness - Rectal Exam Rectal Exam: Deferred - Extremities Exam Extremities Exam: Normal Capillary Refill, Normal Inspection, Tenderness. absent: Calf Tenderness, Joint Swelling, Pedal Edema Additional comments: R groin s/p cath- approximately 5 cm raised area, erythematous, tender to palpation RLE is warm to touch, pulses are felt, no loss of sensation - Back Exam Back Exam: NORMAL INSPECTION - Neurological Exam Neurological Exam: Alert, Awake, CN II-XII Intact, Oriented x3 - Psychiatric Exam Psychiatric exam: Normal Affect, Normal Mood - Skin Skin Exam: Dry, Intact, Normal Color, Warm Assessment and Plan - Assessment and Plan (Free Text) Assessment: Patient is 72 yo female who presents s/p cardiac cath via R femoral artery on 03/29. She has a pseudoaneurysm with partial thrombosis in the R groin. Plan: Right groin Pseudoaneurysm- s/p cardiac cath (03/29/18) - Outpatient u/s: largely thrombosed moderate sized pseudoaneurysm 2.7x1/ 6x5.4cm with limited residual flow appreciated related to the right common femoral artery - Cardiology consulted (Dr. Mazariegos) - IR consulted (Dr. Bynum)- no intervention at this time, f/u repeat u/s to determine size and patency - F/u RLE u/s T2DM - Accuchecks - Hypoglycemic protocol - ISS- regular HTN - Continue home Losartan 100mg PO daily HLD - Continued home Crestor 20mg PO QHS Insomnia - Trazadone 50mg PO QHS - Ambien 5mg PO HS prn Vitamin B12 deficiency - Continue home vitamin B12 IVF: not indicated GI ppx: Protonix 40mg PO daily (home medication) DVT ppx: heparin 5000u SC q12hrs start tomorrow as per cardio Diet: heart healthy (low carb) Code status: full code
[2018-04-16] MEDS: Pantoprazole 40 mg EC Tab PO SCH (12:17)
--- NOTE | 2018-04-17 00:13 | CP.PCM.PN ---
Subjective - Date & Time of Evaluation Date of Evaluation: 04/16/18 Time of Evaluation: 11:05 - Subjective Subjective: Patient seen and evaluated Denies groin pain Repeat ultrasound groin Wednesday Further mgt as per Dr. Jj Bynum Physical examination - Constitutional Appears: Well, No Acute Distress - Head Exam Head Exam: ATRAUMATIC, NORMAL INSPECTION, NORMOCEPHALIC - Eye Exam Eye Exam: EOMI, Normal appearance - ENT Exam ENT Exam: Mucous Membranes Moist - Respiratory Exam Respiratory Exam: Clear to Ausculation Bilateral, NORMAL BREATHING PATTERN - Cardiovascular Exam Cardiovascular Exam: REGULAR RHYTHM, +S1, +S2 - GI/Abdominal Exam GI & Abdominal Exam: Soft. absent: Guarding, Rigid, Tenderness - Extremities Exam Extremities Exam: Full ROM Additional comments: Right groin: mild tenderness - Neurological Exam Neurological Exam: Alert, Awake, Oriented x3 - Psychiatric Exam Psychiatric exam: Normal Affect, Normal Mood - Skin Skin Exam: Dry, Normal Color, Warm Objective - Vital Signs/Intake and Output Vital Signs (last 24 hours): Temp Pulse Resp BP Pulse Ox 98 F 54 L 20 161/53 H 100 04/16/18 15:00 04/16/18 15:00 04/16/18 15:00 04/16/18 15:00 04/16/18 15:00 Intake and Output: 04/16/18 04/17/18 18:59 06:59 Intake Total 500 300 Balance 500 300 - Medications Medications: Current Medications Cyanocobalamin (Vitamin B12 1000 Mcg Tab) 1,000 mcg PO DAILY [facility] Last Admin: 04/16/18 12:19 Dose: 1,000 mcg Dextrose (Dextrose 50% Inj) 0 ml IV STAT PRN; Protocol PRN Reason: Hypoglycemia Protocol Dextrose (Glutose 15) 0 gm PO ONCE PRN; Protocol PRN Reason: Hypoglycemia Protocol Glipizide (Glucotrol Xl) 5 mg PO ACB [facility] Heparin Sodium (Porcine) (Heparin) 5,000 units SC Q12H [facility] Last Admin: 04/16/18 17:15 Dose: 5,000 units Dextrose (Dextrose 5% In Water 1000 Ml) 1,000 mls @ 0 mls/hr IV .Q0M PRN; Protocol; Per Protocol PRN Reason: Hypoglycemia Protocol Insulin Human Regular (Novolin R) 0 unit SC ACHS [facility] PRN Reason: Protocol Last Admin: 08/11/18 17:55 Dose: Not Given Losartan Potassium (Cozaar) 100 mg PO DAILY [facility] Last Admin: 04/16/18 12:16 Dose: 100 mg Pantoprazole Sodium (Protonix Ec Tab) 40 mg PO DAILY [facility] Last Admin: 04/16/18 12:17 Dose: 40 mg Rosuvastatin Calcium (Crestor) 20 mg PO HS [place] Last Admin: 04/16/18 22:42 Dose: 20 mg Trazodone HCl (Desyrel) 50 mg PO HS [facility] Last Admin: 04/16/18 22:42 Dose: 50 mg Zolpidem Tartrate (Ambien) 5 mg PO HS PRN PRN Reason: Insomnia Last Admin: 04/16/18 22:42 Dose: 5 mg - Labs Labs: 04/16/18 06:32 04/16/18 06:32 PT 11.4 SECONDS (9.7-12.2) 04/14/18 15:10 INR 1.0 04/14/18 15:10 APTT 38 SECONDS (21-34) H 04/14/18 15:10 Assessment and Plan - Assessment and Plan (Free Text) Assessment: Patient seen and evaluated Denies groin pain Repeat ultrasound groin Wednesday Further mgt as per Dr. Jj Bynum From tomorrow Dr. Boyd will take over for cardiology' Thank you
[2018-04-17 08:12] LABS: BASO % 0.8 % (0.0-2.0); EOS # 0.2 K/uL (0.0-0.7); EOS % 6.4 % (0.0-4.0); HEMOGLOBIN 10.3 g/dL (11.0-16.0); LYMPH # 1.3 K/uL (1.0-4.3); LYMPH % 33.2 % (20.0-40.0); MEAN CELL VOLUME 84.7 fL (81.0-99.0); MEAN CORPUSCULAR HEMOGLOBIN 29.1 pg (27.0-31.0); MEAN CORPUSCULAR HGB CONC 34.3 g/dL (33.0-37.0); MEAN PLATELET VOLUME 7.9 fL (7.2-11.7); MONO # 0.3 K/uL (0.0-0.8); MONO % 8.1 % (0.0-10.0); NEUT % 51.5 % (50.0-75.0); NRBC % 0.2 % (0.0-2.0); RBC 3.54 Mil/uL (3.80-5.20); RED CELL DISTRIBUTION WIDTH 14.3 % (11.5-14.5); WHITE BLOOD COUNT 3.9 K/uL (4.8-10.8)
[2018-04-17] MEDS: GlipiZIDE 5 mg SR Tab PO SCH (08:27)
[2018-04-17 08:33] LABS: ALB/GLOB RATIO 1.4 (1.0-2.1); ALBUMIN 4.2 g/dL (3.5-5.0); CALCIUM 8.8 mg/dl (8.6-10.4)
[2018-04-17] MEDS: Pantoprazole 40 mg EC Tab PO SCH (10:29)
--- NOTE | 2018-04-17 13:51 | CP.PCM.PN ---
Subjective - Date & Time of Evaluation Date of Evaluation: 04/17/18 Time of Evaluation: 13:51 - Subjective Subjective: PGY-1 Medicine Progress Note for Dr. Blum's service Patient seen and examined in hallway as she was ambulatory and taking a walk. Patient offers no acute complaints. Patient denies chest pain, sob, nausea, vomiting, constipation, diarrhea, dysuria, weakness. Objective - Vital Signs/Intake and Output Vital Signs (last 24 hours): Temp Pulse Resp BP Pulse Ox 97.8 F 58 L 20 110/59 L 98 04/17/18 08:38 04/17/18 08:38 04/17/18 08:38 04/17/18 08:38 04/17/18 08:38 Intake and Output: 04/17/18 04/17/18 06:59 18:59 Intake Total 300 240 Balance 300 240 - Medications Medications: Current Medications Cyanocobalamin (Vitamin B12 1000 Mcg Tab) 1,000 mcg PO DAILY [facility] Last Admin: 04/17/18 10:29 Dose: 1,000 mcg Dextrose (Dextrose 50% Inj) 0 ml IV STAT PRN; Protocol PRN Reason: Hypoglycemia Protocol Dextrose (Glutose 15) 0 gm PO ONCE PRN; Protocol PRN Reason: Hypoglycemia Protocol Glipizide (Glucotrol Xl) 5 mg PO ACB [facility] Last Admin: 04/17/18 08:27 Dose: 5 mg Heparin Sodium (Porcine) (Heparin) 5,000 units SC Q12H [facility] Last Admin: 04/17/18 05:22 Dose: 5,000 units Dextrose (Dextrose 5% In Water 1000 Ml) 1,000 mls @ 0 mls/hr IV .Q0M PRN; Protocol; Per Protocol PRN Reason: Hypoglycemia Protocol Insulin Human Regular (Novolin R) 0 unit SC ACHS [facility] PRN Reason: Protocol Last Admin: 04/16/18 17:55 Dose: Not Given Losartan Potassium (Cozaar) 100 mg PO DAILY [facility] Last Admin: 04/17/18 10:30 Dose: 100 mg Pantoprazole Sodium (Protonix Ec Tab) 40 mg PO DAILY [facility] Last Admin: 04/17/18 10:29 Dose: 40 mg Rosuvastatin Calcium (Crestor) 20 mg PO HS [facility] Last Admin: 04/16/18 22:42 Dose: 20 mg Trazodone HCl (Desyrel) 50 mg PO HS [facility] Last Admin: 04/16/18 22:42 Dose: 50 mg Zolpidem Tartrate (Ambien) 5 mg PO HS PRN PRN Reason: Insomnia Last Admin: 04/16/18 22:42 Dose: 5 mg - Labs Labs: 04/17/18 07:52 04/17/18 07:52 PT 11.4 SECONDS (9.7-12.2) 04/14/18 15:10 INR 1.0 04/14/18 15:10 APTT 38 SECONDS (21-34) H 04/14/18 15:10 - Additional Findings Additional findings: - Constitutional Appears: Well, No Acute Distress - Head Exam Head Exam: ATRAUMATIC, NORMAL INSPECTION, NORMOCEPHALIC - Eye Exam Eye Exam: EOMI, Normal appearance - ENT Exam ENT Exam: Mucous Membranes Moist, Normal Exam - Neck Exam Neck Exam: Normal Inspection - Respiratory Exam Respiratory Exam: Clear to Ausculation Bilateral, NORMAL BREATHING PATTERN - Cardiovascular Exam Cardiovascular Exam: REGULAR RHYTHM, +S1, +S2 - GI/Abdominal Exam GI & Abdominal Exam: Soft, Normal Bowel Sounds. absent: Tenderness - Rectal Exam Rectal Exam: Deferred - Extremities Exam Extremities Exam: Normal Capillary Refill, Normal Inspection, Tenderness. absent: Calf Tenderness, Joint Swelling, Pedal Edema Additional comments: R groin s/p cath- approximately 5 cm raised area, erythematous, tender to palpation RLE is warm to touch, pulses are felt, no loss of sensation - Back Exam Back Exam: NORMAL INSPECTION - Neurological Exam Neurological Exam: Alert, Awake, CN II-XII Intact, Oriented x3 - Psychiatric Exam Psychiatric exam: Normal Affect, Normal Mood - Skin Skin Exam: Dry, Intact, Normal Color, Warm Assessment and Plan - Assessment and Plan (Free Text) Assessment: Patient is 72 yo female who presents s/p cardiac cath via R femoral artery on 03/29. She has a pseudoaneurysm with partial thrombosis in the R groin. Plan: Right Groin Pseudoaneurysm F/U RLE U/S s/p cardiac cath (03/29/18) Outpatient u/s: largely thrombosed moderate sized pseudoaneurysm 2.7x1/6x5.4cm with limited residual flow appreciated related to the right common femoral artery Cardiology consulted (Dr. Mazariegos) IR consulted (Dr. Bynum)- no intervention at this time, f/u repeat u/s to determine size and patency DM2 Glipzide 5mg po ACB [facility] Accuchecks Hypoglycemic protocol ISS- regular HTN Continue home Losartan 100mg PO daily HLD Continued home Crestor 20mg PO QHS Insomnia Trazadone 50mg PO QHS Ambien 5mg PO HS prn Vitamin B12 deficiency Continue home vitamin B12 Prophylaxis GI ppx: Protonix 40mg PO daily (home medication) DVT ppx: heparin 5000u SC q12hrs start tomorrow as per cardio Diet: heart healthy
--- NOTE | 2018-04-17 20:34 | PN ---
Copied To: Attila Boyd MD Attending MD: Attila Boyd MD DATE: 04/17/2018 SUBJECTIVE: The patient denies chest pain or groin pain at this time. The patient as per the niece who was translating to me noticed the swelling the second day after his discharge from [facility]. OBJECTIVE: VITAL SIGNS: Blood pressure 110/59, heart rate 58, temperature 97.8, respirations 20. HEENT: Normocephalic. CHEST: Clear. HEART: S1, S2 regular. EXTREMITIES: A 2 x 5 cm right groin swelling. No palpable thrill or double bruit; 1+ dorsalis pedis pulse; 2+ posterior tibial pulse. No calf tenderness. LABORATORY DATA: Hemoglobin and hematocrit 10.3 and 30, white count 3.9, platelet count 292,000. SMA-7, today is within normal limits except for glucose of 116 and BUN of 28. ASSESSMENT: 1. Status post recent [id number] myocardial infarction with borderline disease of the mid circumflex artery that was considered, that can be treated medically. 2. Largely thrombosed moderate-sized pseudoaneurysm of the right groin. 3. Mild anemia. 4. Diabetes mellitus. Continue Cozaar at 100 mg once a day, Crestor 20 mg once a day. I recommend discontinuation of subcutaneous heparin. The patient is scheduled for followup Duplex scan of the right groin tomorrow, and in the meantime, I added further evaluation to rule out deep venous thrombosis. Attila Boyd MD
[2018-04-18 00:21] VITALS: RESP 20
[2018-04-18 07:21] LABS: BASO % 0.7 % (0.0-2.0); EOS # 0.3 K/uL (0.0-0.7); EOS % 6.4 % (0.0-4.0); HEMOGLOBIN 9.7 g/dL (11.0-16.0); LYMPH # 1.3 K/uL (1.0-4.3); MEAN CELL VOLUME 85.1 fL (81.0-99.0); MEAN CORPUSCULAR HEMOGLOBIN 28.7 pg (27.0-31.0); MEAN CORPUSCULAR HGB CONC 33.7 g/dL (33.0-37.0); MEAN PLATELET VOLUME 7.8 fL (7.2-11.7); MONO # 0.4 K/uL (0.0-0.8); MONO % 10.4 % (0.0-10.0); NEUT # 2.2 K/uL (1.8-7.0); NEUT % 51.5 % (50.0-75.0); NRBC % 0.1 % (0.0-2.0); RBC 3.37 Mil/uL (3.80-5.20); RED CELL DISTRIBUTION WIDTH 14.3 % (11.5-14.5); WHITE BLOOD COUNT 4.2 K/uL (4.8-10.8)
[2018-04-18 08:07] LABS: ALB/GLOB RATIO 1.4 (1.0-2.1); CALCIUM 9.2 mg/dl (8.6-10.4)
[2018-04-18] MEDS: GlipiZIDE 5 mg SR Tab PO SCH (08:30)
[2018-04-18] MEDS: Pantoprazole 40 mg EC Tab PO SCH (10:59)
--- NOTE | 2018-04-18 17:16 | PN ---
Copied To: Attila Boyd MD Attending MD: Attila Boyd MD DATE: 04/18/2018 SUBJECTIVE: The patient denies any groin pain or chest pain. The patient's is at the bedside. PHYSICAL EXAMINATION: VITAL SIGNS: Blood pressure 121/67, heart rate 61, temperature 98.6, and respirations 20. HEENT: Normocephalic. CHEST: Clear. HEART: S1 and S2 regular. ABDOMEN: Soft. EXTREMITIES: A 2.5 cm right groin hematoma. No palpable thrill and no audible bruit. LABORATORY DATA: Hemoglobin and hematocrit 9.7 and 28.7, white count 4.2, platelet count 260,000. SMA-7 is within normal limits except glucose of 115 and BUN of 37. ASSESSMENT: 1. Right femoral pseudoaneurysm. 2. Coronary artery disease, status post non-ST elevation myocardial infarction recently with borderline disease of the mid circumflex artery. 3. Hypertension. RECOMMENDATIONS: Continue Cozaar 100 mg once a day and Crestor 20 mg once a day. The case was discussed with Dr. Bynum, interventional radiologist, awaiting repeat duplex of the right groin and if the pseudoaneurysm of the is completely thrombosed, no need for intervention. In the meantime, DVT study will be performed for the right lower extremity to be ruled out. Attila Boyd MD
--- NOTE | 2018-04-18 17:49 | CP.PCM.PN ---
Subjective - Date & Time of Evaluation Date of Evaluation: 04/18/18 Time of Evaluation: 09:30 - Subjective Subjective: PGY-1 Maylin Elizondo D.O. Medicine progress not for Dr. Blum's service: Patient was seen an examined this morning. Patient is frustrated that she is still in the hospital. She denies any pain and is able to ambulate without issues. She denies numbness, tingling, or coolness of her RLE. Objective - Vital Signs/Intake and Output Vital Signs (last 24 hours): Temp Pulse Resp BP Pulse Ox 97.5 F L 61 20 146/61 100 04/18/18 16:00 04/18/18 16:00 04/18/18 16:00 04/18/18 16:00 04/18/18 16:00 Intake and Output: 04/18/18 04/18/18 06:59 18:59 Intake Total 740 500 Balance 740 500 - Medications Medications: Current Medications Cyanocobalamin (Vitamin B12 1000 Mcg Tab) 1,000 mcg PO DAILY [facility] Last Admin: 04/18/18 10:59 Dose: 1,000 mcg Dextrose (Dextrose 50% Inj) 0 ml IV STAT PRN; Protocol PRN Reason: Hypoglycemia Protocol Dextrose (Glutose 15) 0 gm PO ONCE PRN; Protocol PRN Reason: Hypoglycemia Protocol Glipizide (Glucotrol Xl) 5 mg PO ACB [facility] Last Admin: 04/18/18 08:30 Dose: 5 mg Insulin Human Regular (Novolin R) 0 unit SC ACHS [place] PRN Reason: Protocol Last Admin: 04/16/18 17:55 Dose: Not Given Losartan Potassium (Cozaar) 100 mg PO DAILY [place] Last Admin: 04/18/18 11:00 Dose: 100 mg Pantoprazole Sodium (Protonix Ec Tab) 40 mg PO DAILY [place] Last Admin: 04/18/18 10:59 Dose: 40 mg Rosuvastatin Calcium (Crestor) 20 mg PO HS [facility] Last Admin: 04/17/18 21:40 Dose: 20 mg Trazodone HCl (Desyrel) 50 mg PO HS [facility] Last Admin: 04/17/18 21:40 Dose: 50 mg Zolpidem Tartrate (Ambien) 5 mg PO HS PRN PRN Reason: Insomnia Last Admin: 04/18/18 01:26 Dose: 5 mg - Labs Labs: 04/18/18 07:09 04/18/18 07:09 PT 11.4 SECONDS (9.7-12.2) 04/14/18 15:10 INR 1.0 04/14/18 15:10 APTT 38 SECONDS (21-34) H 04/14/18 15:10 - Constitutional Appears: Well, No Acute Distress - Head Exam Head Exam: ATRAUMATIC, NORMAL INSPECTION, NORMOCEPHALIC - Eye Exam Eye Exam: EOMI, Normal appearance - ENT Exam ENT Exam: Mucous Membranes Moist, Normal Exam - Neck Exam Neck Exam: Normal Inspection - Respiratory Exam Respiratory Exam: Clear to Ausculation Bilateral, NORMAL BREATHING PATTERN - Cardiovascular Exam Cardiovascular Exam: REGULAR RHYTHM. absent: Murmur - GI/Abdominal Exam GI & Abdominal Exam: Soft, Normal Bowel Sounds. absent: Tenderness - Rectal Exam Rectal Exam: Deferred - Extremities Exam Additional comments: R groin s/p cath- approximately 5 cm raised area, erythematous, tender to palpation RLE is warm to touch, pulses are felt, no loss of sensation - Back Exam Back Exam: NORMAL INSPECTION - Neurological Exam Neurological Exam: Alert, Awake, CN II-XII Intact, Normal Gait, Oriented x3 - Psychiatric Exam Psychiatric exam: Normal Affect, Normal Mood - Skin Skin Exam: Dry, Intact, Normal Color, Warm Assessment and Plan - Assessment and Plan (Free Text) Assessment: Patient is 72 yo female who presents s/p cardiac cath via R femoral artery on 03/29. She has a pseudoaneurysm with partial thrombosis in the R groin. Plan: Right groin Pseudoaneurysm- s/p cardiac cath (03/29/18) - Outpatient u/s: largely thrombosed moderate sized pseudoaneurysm 2.7x1/ 6x5.4cm with limited residual flow appreciated related to the right common femoral artery - Cardiology consulted (Dr. Boyd) - IR consulted (Dr. Bynum)- no intervention at this time, f/u repeat u/s to determine size and patency - F/u RLE u/s T2DM - Accuchecks - Hypoglycemic protocol - ISS- regular HTN - Continue home Losartan 100mg PO daily HLD - Continued home Crestor 20mg PO QHS Insomnia - Trazadone 50mg PO QHS - Ambien 5mg PO HS prn Vitamin B12 deficiency - Continue home vitamin B12 IVF: not indicated GI ppx: Protonix 40mg PO daily (home medication) DVT ppx: SCDs, ambulatory Diet: heart healthy (low carb) Code status: full code
[2018-04-19 01:17] VITALS: O2SAT 98
[2018-04-19 07:11] LABS: BASO % 0.8 % (0.0-2.0); EOS # 0.3 K/uL (0.0-0.7); EOS % 6.5 % (0.0-4.0); HEMOGLOBIN 8.8 g/dL (11.0-16.0); LYMPH # 1.2 K/uL (1.0-4.3); LYMPH % 30.1 % (20.0-40.0); MEAN CELL VOLUME 85.4 fL (81.0-99.0); MEAN CORPUSCULAR HEMOGLOBIN 28.2 pg (27.0-31.0); MEAN CORPUSCULAR HGB CONC 33.1 g/dL (33.0-37.0); MEAN PLATELET VOLUME 7.7 fL (7.2-11.7); MONO # 0.4 K/uL (0.0-0.8); MONO % 9.9 % (0.0-10.0); NEUT # 2.1 K/uL (1.8-7.0); NEUT % 52.7 % (50.0-75.0); RBC 3.13 Mil/uL (3.80-5.20); RED CELL DISTRIBUTION WIDTH 14.6 % (11.5-14.5); WHITE BLOOD COUNT 3.9 K/uL (4.8-10.8)
--- NOTE | 2018-04-19 07:38 | CP.PCM.DIS ---
Provider - Provider Date of Admission: 04/16/18 15:51 Attending physician: Justino Blum MD Primary care physician: Dr. Buchanan Consults: Cardiology (Yair/Oliver), IR ([facility]) Time Spent in preparation of Discharge (in minutes): 45 Diagnosis - Discharge Diagnosis (1) Pseudoaneurysm of right femoral artery Status: Acute Priority: High (2) Thrombosis of right femoral artery Status: Acute Priority: High (3) T2DM (type 2 diabetes mellitus) Status: Chronic Priority: Medium (4) HTN (hypertension) Status: Chronic Priority: Medium (5) HLD (hyperlipidemia) Status: Chronic Priority: Low (6) Insomnia Status: Chronic Priority: Low (7) Vitamin B12 deficiency Status: Chronic Priority: Low Hospital Course - Lab Results Lab Results: Most Recent Lab Values WBC 3.9 K/uL (4.8-10.8) L 04/19/18 06:58 RBC 3.13 Mil/uL (3.80-5.20) L 04/19/18 06:58 Hgb 8.8 g/dL (11.0-16.0) L 04/19/18 06:58 Hct 26.7 % (34.0-47.0) L 04/19/18 06:58 MCV 85.4 fL (81.0-99.0) 04/19/18 06:58 MCH 28.2 pg (27.0-31.0) 04/19/18 06:58 MCHC 33.1 g/dL (33.0-37.0) 04/19/18 06:58 RDW 14.6 % (11.5-14.5) H 04/19/18 06:58 Plt Count 242 K/uL (130-400) 04/19/18 06:58 MPV 7.7 fL (7.2-11.7) 04/19/18 06:58 Neut % (Auto) 52.7 % (50.0-75.0) 04/19/18 06:58 Lymph % (Auto) 30.1 % (20.0-40.0) 04/19/18 06:58 [place] % (Auto) 9.9 % (0.0-10.0) 04/19/18 06:58 Eos % (Auto) 6.5 % (0.0-4.0) H 04/19/18 06:58 Baso % (Auto) 0.8 % (0.0-2.0) 04/19/18 06:58 Neut # (Auto) 2.1 K/uL (1.8-7.0) 04/19/18 06:58 Lymph # (Auto) 1.2 K/uL (1.0-4.3) 04/19/18 06:58 [place] # (Auto) 0.4 K/uL (0.0-0.8) 04/19/18 06:58 Eos # (Auto) 0.3 K/uL (0.0-0.7) 04/19/18 06:58 Baso # (Auto) 0.0 K/uL (0.0-0.2) 04/19/18 06:58 PT 11.4 SECONDS (9.7-12.2) 04/14/18 15:10 INR 1.0 04/14/18 15:10 APTT 38 SECONDS (21-34) H 04/14/18 15:10 Sodium 142 mmol/L (132-148) 04/18/18 07:09 Potassium 4.4 mmol/L (3.6-5.2) 04/18/18 07:09 Chloride 105 mmol/L (98-107) 04/18/18 07:09 Carbon Dioxide 26 mmol/L (22-30) 04/18/18 07:09 Anion Gap 15 (10-20) 04/18/18 07:09 BUN 37 mg/dL (7-17) H 04/18/18 07:09 Creatinine 1.2 mg/dL (0.7-1.2) 04/18/18 07:09 Est GFR ( Amer) 53 04/18/18 07:09 Est GFR (Non-Af Amer) 44 04/18/18 07:09 POC Glucose (mg/dL) 153 mg/dL (65-110) H 04/19/18 07:27 Random Glucose 115 mg/dL (65-105) H 04/18/18 07:09 Calcium 9.2 mg/dl (8.6-10.4) 04/18/18 07:09 Phosphorus 3.6 mg/dL (2.5-4.5) 04/18/18 07:09 Magnesium 2.0 mg/dL (1.6-2.3) 04/18/18 07:09 Total Bilirubin 0.3 mg/dL (0.2-1.3) 04/18/18 07:09 AST 16 U/L (14-36) 04/18/18 07:09 ALT 21 U/L (9-52) 04/18/18 07:09 Alkaline Phosphatase 64 U/L (38-126) 04/18/18 07:09 Total Protein 6.8 g/dL (6.3-8.3) 04/18/18 07:09 Albumin 4.0 g/dL (3.5-5.0) 04/18/18 07:09 Globulin 2.9 gm/dL (2.2-3.9) 04/18/18 07:09 Albumin/Globulin Ratio 1.4 (1.0-2.1) 04/18/18 07:09 Blood Type O NEGATIVE 04/14/18 15:10 Antibody Screen Negative 04/14/18 15:10 - Hospital Course Hospital Course: Patient is a 72 year old female with a past medical history of DM, HTN, HLD, who presents to the ED with complaints of a swollen right groin s/p cardiac cath. The patient had a cardiac cath on 03/29 and since then had mild swelling in the right groin. She follow up with Dr. Johnson who ordered an Ultrasound of the groin. The ultrasound showed a pseudoaneurysm. The patient currently has no complaints, denies pain in the right groin, and says its mildly swollen. Patient denies chest pain, palpitations, dyspnea, abdominal pain, nausea, vomiting, fevers, headaches, dizziness, dysuria, constipation, and diarrhea. Duplex scan of the RLE indicated stable size of the pseudoaneurysm and thrombosis. IR Dr. Bynum felt that no intervention was indicated at this time, and he cleared the patient for discharge. Her blood glucose was well controlled throughout the admission. The patient's BP fluctuated (SBP 120s-160s), but patient was asymptomatic. Upon discharge, the patient had minimal pain. She denied numbness, tingling, or coolness of her RLE. She was ambulating without issue. She was instructed to follow-up with her button pusher, Dr. Body, as she will need a follow-up ultrasound in 6 months. Discharge Exam - Head Exam Head Exam: ATRAUMATIC, NORMAL INSPECTION, NORMOCEPHALIC - Eye Exam Eye Exam: EOMI, Normal appearance - ENT Exam ENT Exam: Mucous Membranes Moist, Normal Exam - Neck Exam Neck exam: Normal Inspection - Respiratory Exam Respiratory Exam: Clear to PA & Lateral, NORMAL BREATHING PATTERN - Cardiovascular Exam Cardiovascular Exam: REGULAR RHYTHM, +S1, +S2 - GI/Abdominal Exam GI & Abdominal Exam: Normal Bowel Sounds, Unremarkable - Rectal Exam Rectal Exam: Deferred - Extremities Exam Extremities exam: pedal pulses present Additional comments: R groin s/p cath- approximately 5 cm raised area, erythematous, tender to palpation RLE is warm to touch, pulses are felt, no loss of sensation - Back Exam Back exam: NORMAL INSPECTION - Neurological Exam Neurological exam: Alert, CN II-XII Intact, Normal Gait, Oriented x3 - Psychiatric Exam Psychiatric exam: Normal Affect, Normal Mood - Skin Skin Exam: Dry, Intact, Normal Color, Warm Discharge Plan - Follow Up Plan Condition: STABLE Disposition: HOME/ ROUTINE Patient education suggested?: Yes Instructions: High Blood Pressure in Adults, Controlling Your Blood Pressure Through Lifestyle, Vitamin B12 Deficiency (DC) Additional Instructions: Patient is cleared for discharge as per Oliver Ponce, and [facility]. Dr. Bynum reviewed the ultrasound of the patients groin, and does not feel there is any intervention to be done at this time. He recommends a follow-up ultrasound in 6 months. The patient is instructed to follow-up with her primary care physician, Dr. Buchanan, and button pusher, Dr. Buchanan, within one week of discharge. Her outpatient providers will schedule the repeat ultrasound for October of 2018. The patient is to resume all of her home medications. She can take her home prescription of Tylenol-codeine #3 OR Tylenol 650 mg every 6 hours for pain. If symptoms recur or worsen, patient is instructed to return to the ED. Patient understands and agrees. El paciente est autorizado para el gauri segn los Oliver Ponce y [place]. El Dr. Bynum miguel la ecografa de la natalio del paciente y no maxx que deba hacerse ninguna intervencin en maricruz momento. l recomienda un ultrasonido de seguimiento en 6 meses. El paciente recibe instrucciones de realizar un seguimiento con ro mdico de atencin primaria, el Dr. Buchanan, y el cardilogo, el Dr. Buchanan, chris semana despus del gauri. El paciente debe reanudar todos maia medicamentos en el hogar. Ruth puede lolis Tylenol-codeine #3 O 650 mg de Tylenol cada 6 horas para el dolor. Si los sntomas reaparecen o empeoran, se le indica al paciente que regrese al ED. El paciente entiende y est de acuerdo. Referrals: Attila Boyd MD [Staff Provider] - Yuri Buchanan MD [Non-Staff] -
[2018-04-19] MEDS: GlipiZIDE 5 mg SR Tab PO SCH (08:30)
[2018-04-19 09:29] VITALS: BP 123/54; PULSE 53; TEMP 98.2
[2018-04-19] MEDS: Pantoprazole 40 mg EC Tab PO SCH (10:28)
--- NOTE | 2018-04-19 13:15 | VASCLAB ---
Date of service: 04/18/2018 PROCEDURE: ARTERIAL DUPLEX SCAN OF THE RIGHT GROIN HISTORY: Pseudoaneurysm right groin, follow-up for increasing size COMPARISON: None available. TECHNIQUE: ROMAN Trivedi, RVT FINDINGS: Previously identified right femoral pseudoaneurysm is completely thrombosed. The velocities of the right groin are: common femoral 270 cm/s, proximal superficial femoral 184 cm/s and proximal profunda femoral 135 cm/s. Normal phasic doppler signals noted in the right common femoral and femoral veins. IMPRESSION: Right femoral pseudoaneurysm is fully thrombosed. 50-75% stenosis noted in the right common femoral artery. 30-49% stenosis of the right proximal profunda femoral artery.
== END 2018-04-19 12:20 | disposition home or self-care (01) | DRG 300 ==
LOC: C.ER 13:34 → C.9E 17:09 → C.3T 19:05 → OBSVTOIN 04-16 15:51
PROVIDERS: ADMIT Internal Medicine; ATTEND Internal Medicine
DX: I72.4 Aneurysm of artery of lower extremity (principal); I74.3 Embolism and thrombosis of arteries of the lower extremities; Y84.0 Cardiac catheterization as the cause of abnormal reaction of the patient, or of later complication, without mention of misadventure at the time of the procedure; I25.10 Atherosclerotic heart disease of native coronary artery without angina pectoris; I10 Essential (primary) hypertension; E11.9 Type 2 diabetes mellitus without complications; E78.5 Hyperlipidemia, unspecified; E78.00 Pure hypercholesterolemia, unspecified; D64.9 Anemia, unspecified; G47.00 Insomnia, unspecified; I25.2 Old myocardial infarction; Z98.51 Tubal ligation status